=== PATIENT | female | born 2000 | race Caucasian/White ===

== ENCOUNTER 2020-02-11 16:18 | Emergency (ER) | payer MEDICAID ==
[~2020-02-11] VITALS: Ht 168.9 cm; Wt 83.6 kg
[2020-02-11 16:21] VITALS: BP 137/90
[2020-02-11] MEDS ORDERED: OMEP10 PO (16:44)
[2020-02-11] MEDS ORDERED: [UNRECOGNIZED DRUG - OTHER] TP (16:44)
[2020-02-11 18:10] LABS: APPEARANCE,URINE CLOUDY (CLEAR); BILIRUBIN,URINE NEGATIVE (NEGATIVE); GLUCOSE, URINE (UA) NEGATIVE (NEGATIVE); KETONES,URINE TRACE mg/dL (NEGATIVE); LEUKOCYTE ESTERASE ,URINE NEGATIVE (NEGATIVE); NITRATE,URINE NEGATIVE (NEGATIVE); OCCULT BLOOD,URINE NEGATIVE (NEGATIVE); PH,URINE 5.5 (5.0-8.0); PROTEIN,URINE NEGATIVE (NEGATIVE)
[2020-02-11 18:23] LABS: RBC,URINE 0-2 /HPF (0-2); WBC,URINE 0-2 /HPF (0-5)
[2020-02-11 18:24] LABS: BACTERIA,URINE Moderate /HPF (None Seen); SQUAMOUS EPITHELIAL CELL,UR Many /LPF (None Seen)
[2020-02-11] MEDS ORDERED: LIDOCAINE/PF 1% 2 ML VIAL IM ONE (18:30)
[2020-02-11] MEDS ORDERED: CefTRIAXone SODIUM 1 GM/VIAL IM ONE (18:30)
[2020-02-11] MEDS ORDERED: PENICILLIN G BENZATHINE LA 2,400,000 UNITS/4 ML SYRINGE IM ONE (18:30)
[2020-02-11] MEDS ORDERED: AZITHROMYCIN 500 MG TABLET PO ONE (18:30)
== END 2020-02-11 20:00 | disposition home or self-care (01) ==
LOC: EMS 16:20
DX: A63.0 Anogenital (venereal) warts (principal); K21.9 Gastro-esophageal reflux disease without esophagitis; F17.210 Nicotine dependence, cigarettes, uncomplicated
CPT/HCPCS: 36415; 81001; 84703; 86592; 87086; 87210; 87389; 87491; 87591; 96372; 99284; J0561; J0696; J3490